=== PATIENT | male | born 1950 | race Caucasian/White ===

== ENCOUNTER 2017-03-02 15:10 | Outpatient (CLI) | payer MEDICARE ==
[~2017-03-02 15:10] MED LIST: Iopamidol 370 76% 100 ML VIAL ONE
--- NOTE | 2017-03-03 10:09 | CT ---
CONTRAST ENHANCED CTA IMAGES OF ABDOMEN AND PELVIS AND RUNOFF: DATE: 03/02/17. COMPARISON: Comparison is made to a previous exam from 06/29/13. FINDINGS: Contrast-enhanced CTA with 2D and 3D reconstructed images performed. The liver, spleen, pancreas, gallbladder, adrenal glands, and kidneys are grossly unremarkable. Ext ensive bilateral renal artery first order and second order arterial calcifications seen. Findings s uggest moderate to significant bilateral origin renal artery stenosis and just slightly distal to th e origin of the renal arteries. These appear to have been present on the previous exam and have not significantly changed. Some atherosclerotic changes without evidence of significant stenosis seen in the celiac and severe mesenteric arteries. The inferior mesenteric artery is also patent. Extensive atherosclerotic calc ifications are seen in the abdominal aorta without evidence of obvious aneurysms or dissections. Bilateral common iliac artery extensive atherosclerotic plaque is seen. RIGHT LOWER EXTREMITY: There is severe distal right common carotid artery plaque which results in high-grade and critical s tenosis of the right common iliac artery. Flow does appear to reach the right external iliac artery which is patent but also severely diseased. The right common femoral artery also contains extensiv e plaques. Atherosclerotic plaque is extensive in the proximal portion of the right superficial fem oral artery which is occluded. The right femoral profunda is patent. Flow is seen in the right fem oral profunda which provides collaterals which does reconstitute the distal right popliteal artery. Post-trifurcation flow is seen in the right anterior tibial, posterior tibial, and right peroneal a rteries. LEFT LOWER EXTREMITY: Atherosclerotic plaque is seen in the left common iliac artery. There is extensive distal left exte rnal iliac arterial plaque present which results in high-grade stenosis. There is an area of athere ctomy site in the left distal common femoral artery which does appear to be patent. There is flow s een in the left severely diseased left superficial femoral artery which has multisegmental areas of plaque stenosis. The left proximal and mid popliteal artery is patent. There is severe atheroscler otic plaque in the distal left popliteal artery. Flow is seen in the left anterior tibial, posterio r tibial, and left peroneal arteries post trifurcation. IMPRESSION: Extensive bilateral iliac and moderate to severe left superficial femoral artery and complete occlus ion of the right superficial femoral artery. POS: [facility]
== END 2017-03-02 15:11 | disposition home or self-care (01) ==
LOC: CT 15:10
PROVIDERS: ATTEND Thoracic Surgery (Cardiothoracic Vascular Surgery)
DX: I70.213 Atherosclerosis of native arteries of extremities with intermittent claudication, bilateral legs (principal); I77.1 Stricture of artery
CPT/HCPCS: 75635

== ENCOUNTER 2017-03-07 11:00 | Inpatient (IN) | payer MEDICARE ==
[2017-03-07] MEDS ORDERED: Iothalamate Meglumine 60% 50 ML VIAL FS ONE (11:48)
[2017-03-07] MEDS ORDERED: Heparin 5,000 UNITS/ML VIAL ONE (11:55)
[2017-03-07] MEDS ORDERED: Protamine Sulfate 50 MG/5 ML VIAL ONE (12:38)
[2017-03-07 12:52] LABS: Anion Gap 14 mmol/L (10-20); BUN (Urea Nitrogen) 11 mg/dL (8.4-25.7); Calc. Creatinine Clearance 119 mL/min (70-130); Calcium 10.1 mg/dL (7.8-10.44); Carbon Dioxide 24 mmol/L (23-31); Chloride 103 mmol/L (98-107); Estimated GFR-MDRD Greater than 90
[2017-03-07] MEDS ORDERED: Fentanyl 100 MCG/2 ML VIAL ONE ×4 (12:52→17:04)
[2017-03-07] MEDS ORDERED: Midazolam HCl 2 mg/2 ml Vial ONE (12:52)
[2017-03-07 12:58] LABS: Hematocrit 29.6 % (42.0-52.0); Mean Platelet Volume 7.3 fL (7.4-10.4); Red Blood Cell (RBC) Count 2.37 mill/uL (4.70-6.10); White Blood Cell (WBC) Count 12.5 thou/uL (4.8-10.8)
[2017-03-07 13:01] LABS: Band 24 % (5-11); Macrocytosis MODERATE=16-30 cells (100X) (0-5/hpf); Neutrophil 47 % (42-75); Polychromasia MODERATE = 3-4 cells (100X) (0-2/hpf); Promyelocytes 1 % (0-0); Target Cells MODERATE= 6-15 cells (100X) (0-1/hpf)
[2017-03-07] MEDS ORDERED: Propofol 200 MG/20 ML VIAL ONE (13:10)
[2017-03-07] MEDS ORDERED: Glycopyrrolate 0.2 MG/ML 5 ML SYRINGE ONE (13:10)
[2017-03-07] MEDS ORDERED: Ondansetron HCl/PF 4 MG/2 ML Vial ONE (13:10)
[2017-03-07 15:48] VITALS: BMI 24.8
[2017-03-07] MEDS ORDERED: Promethazine HCl 25 MG/ML VIAL SLOW IVP PRN (15:50)
[2017-03-07] MEDS ORDERED: Promethazine HCl 25 MG/ML VIAL IM PRN ×2 (15:50→17:15)
[2017-03-07] MEDS ORDERED: Ondansetron HCl/PF 4 MG/2 ML Vial IVP PRN (15:50)
[2017-03-07] MEDS ORDERED: HYDROcodone/Acetaminophen 5/325 mg Tablet PO PRN (17:15)
[2017-03-07] MEDS ORDERED: Fentanyl 100 MCG/2 ML VIAL SLOW IVP PRN ×2 (17:15)
[2017-03-07] MEDS ORDERED: Acetaminophen 325 MG TAB PO PRN (17:15)
--- NOTE | 2017-03-07 17:29 | OP ---
PREOPERATIVE DIAGNOSIS: Gangrene, right foot secondary to peripheral artery disease. PROCEDURES: Right common femoral endarterectomy with bovine patch angioplasty and right common and external iliac artery stenting. Stents sizes were 8 x 40 Innova self-expanding stent in the distal right common iliac extending into the proximal external iliac and a second more distal stent of an 8 x 37 Express LD stent extending from the distal aspect of the Innova stent and then crossing includ ing the previously placed Express stent. SURGEON: Tadeo Blair M.D. ANESTHESIA: General. ESTIMATED BLOOD LOSS: 200 mL. DESCRIPTION OF THE PROCEDURE: After adequate anesthesia had been obtained, the patient was prepped and draped. Right common femoral artery is exposed and then external iliac artery under the inguina l ligament. There was no pulse in the common femoral artery due to heavy calcification. Distal pro matthew branches x2 were mobilized and these were not very large branches. Following heparinization, a needle was inserted in the common femoral artery in one soft spot. Wire advanced and a 7 Chinese m arker sheath advanced and angiography retrograde was obtained. Following this, 8 x 40 Innova stent was deployed in the distal common iliac artery on the right and posted with an 8 balloon. There was still about 2.5 cm between that stent and previously placed external iliac artery Express stent. I t was elected to extend an Express stent 8 x 37 to cover the intervening area as well as within the prior stent. Following this, deployment of retrograde angiography showed good result. There was di sease in the more distal external iliac artery, but it did not appear to be significant. At that ti me wires and sheaths were removed. Clamps were applied. An arteriotomy performed through the commo n femoral extending onto the orifice of the superficial femoral. There was some backbleeding from t he superficial femoral artery, which had not been expected since it was occluded. Following endarte rectomy, a bovine patch was used to close this arteriotomy restoring flow after forward flushing and back flushing. Protamine was given to reverse the heparin and after obtaining good hemostasis, the wound was irrigated. There were good Doppler signals in both profunda femoral branches. The patie nt's wound was then closed in layers and the patient is to be taken to the recovery room.
[2017-03-07] MEDS: HYDROcodone/Acetaminophen 5/325 mg Tablet PO PRN (20:23)
[2017-03-07] MEDS: Simvastatin 40 MG TAB PO SCH (20:23)
[2017-03-07] MEDS: Sodium Chloride 0.9% 1,000 ML IV SCH (20:24)
[2017-03-07] MEDS: Metoprolol Tartrate 25 MG TAB PO SCH (20:36)
[2017-03-08] MEDS: HYDROcodone/Acetaminophen 5/325 mg Tablet PO PRN ×2 (00:33→10:05)
[2017-03-08 05:06] LABS: Anion Gap 10 mmol/L (10-20); BUN (Urea Nitrogen) 9 mg/dL (8.4-25.7); Calc. Creatinine Clearance 136 mL/min (70-130); Calcium 8.4 mg/dL (7.8-10.44); Carbon Dioxide 24 mmol/L (23-31); Chloride 106 mmol/L (98-107); Estimated GFR-MDRD Greater than 90
[2017-03-08 05:08] LABS: #Basophils 0.1 thou/uL (0.0-0.2); #Eosinphils 0.3 thou/uL (0.0-0.7); #Lymphocytes 2.1 thou/uL (1.20-3.40); #Monocytes 0.4 thou/uL (0.11-0.59); #Neutrophils 5.7 thou/uL (1.40-6.50); %Basophils 0.7 % (0.0-1.0); %Eosinophils 3.8 % (0.0-10.0); %Lymphocytes 24.7 % (21.0-51.0); %Monocytes 4.5 % (0.0-10.0); Hematocrit 21.3 % (42.0-52.0); Mean Platelet Volume 7.1 fL (7.4-10.4); Red Blood Cell (RBC) Count 1.69 mill/uL (4.70-6.10); White Blood Cell (WBC) Count 8.7 thou/uL (4.8-10.8)
[2017-03-08] MEDS: Ondansetron HCl/PF 4 MG/2 ML Vial IVP PRN ×2 (05:15→12:31)
[2017-03-08] MEDS ORDERED: Cyanocobalamin 1000 MCG/ML VIAL IM SCH (08:00)
[2017-03-08] MEDS: Clopidogrel Bisulfate 75 MG TAB PO SCH (10:01)
[2017-03-08] MEDS: Folic Acid/Vit B Comp W-C PO SCH (10:01)
[2017-03-08] MEDS: Lisinopril 10 MG TAB PO SCH (10:01)
[2017-03-08] MEDS: Metoprolol Tartrate 25 MG TAB PO SCH ×2 (10:01→21:32)
[2017-03-08] MEDS: Cyanocobalamin (Vitamin B-12) 1,000 MCG TAB PO SCH (10:01)
[2017-03-08] MEDS: Sodium Chloride 0.9% 1,000 ML IV SCH (16:47)
[2017-03-08] MEDS: Simvastatin 40 MG TAB PO SCH (21:32)
[2017-03-09] MEDS: Metoprolol Tartrate 25 MG TAB PO SCH (09:00)
[2017-03-09] MEDS: Lisinopril 10 MG TAB PO SCH (09:00)
[2017-03-09] MEDS: Cyanocobalamin (Vitamin B-12) 1,000 MCG TAB PO SCH (09:00)
[2017-03-09] MEDS: Clopidogrel Bisulfate 75 MG TAB PO SCH (09:00)
[2017-03-09] MEDS: Folic Acid/Vit B Comp W-C PO SCH (09:01)
[2017-03-09] MEDS: Sodium Chloride 0.9% 1,000 ML IV SCH (10:19)
[2017-03-09] MEDS: HYDROcodone/Acetaminophen 5/325 mg Tablet PO PRN (11:17)
[2017-03-09 12:35] VITALS: BP 105/44; TEMP 98.5
== END 2017-03-09 12:57 | disposition home or self-care (01) | DRG 272 ==
LOC: SURG A 11:00 → IMCU/EMU 16:34
PROVIDERS: ADMIT Thoracic Surgery (Cardiothoracic Vascular Surgery); ATTEND Thoracic Surgery (Cardiothoracic Vascular Surgery)
PROC: 04CK3ZZ Extirpation of Matter from Right Femoral Artery, Percutaneous Approach (ICD-10-PCS; principal; 2017-03-07)
PROC: 04UK3KZ Supplement Right Femoral Artery with Nonautologous Tissue Substitute, Percutaneous Approach (ICD-10-PCS; 2017-03-07)
PROC: 047C34Z Dilation of Right Common Iliac Artery with Drug-eluting Intraluminal Device, Percutaneous Approach (ICD-10-PCS; 2017-03-07)
PROC: 047H34Z Dilation of Right External Iliac Artery with Drug-eluting Intraluminal Device, Percutaneous Approach (ICD-10-PCS; 2017-03-07)
DX: I70.261 Atherosclerosis of native arteries of extremities with gangrene, right leg (principal); E78.2 Mixed hyperlipidemia; Z79.82 Long term (current) use of aspirin; Z87.891 Personal history of nicotine dependence
CPT/HCPCS: 36415; 76001; 80048; 82607; 85025; 86850; 86900; 86901; 93005; 93010; C1725; C1769; C1874; G8978-GP-CM; G8979-GP-CK; J1642; J1644; J2250; J2405; J2704; J2720; J3010; Q9961

== ENCOUNTER 2017-05-10 16:18 | Inpatient (IN) | payer MEDICARE ==
[2017-05-10] MEDS ORDERED: Acetaminophen 325 MG TAB PO PRN (16:32)
[2017-05-10] MEDS ORDERED: HYDROcodone/Acetaminophen 5/325 mg Tablet PO PRN (16:32)
[2017-05-10] MEDS ORDERED: Zolpidem Tartrate 5 MG TAB PO PRN (16:34)
[2017-05-10] MEDS ORDERED: Vancomycin HCl 1 GM in Premix Bag 1 BAG IVPB SCH (17:00)
[2017-05-10] MEDS: Fentanyl 100 MCG/2 ML VIAL SLOW IVP PRN (17:26)
[2017-05-10] MEDS ORDERED: hydrALAZINE 20 MG/ML VIAL SLOW IVP PRN (17:40)
[2017-05-10] MEDS: HYDROcodone/Acetaminophen 5/325 mg Tablet PO PRN ×2 (17:44→21:24)
[2017-05-10 17:45] LABS: #Basophils 0.1 thou/uL (0.0-0.2); #Eosinphils 0.4 thou/uL (0.0-0.7); #Monocytes 0.6 thou/uL (0.11-0.59); #Neutrophils 7.4 thou/uL (1.40-6.50); %Basophils 0.5 % (0.0-1.0); %Eosinophils 3.1 % (0.0-10.0); %Lymphocytes 26.3 % (21.0-51.0); %Monocytes 5.2 % (0.0-10.0); %Neutrophils 64.9 % (42.0-75.0); Hemoglobin 8.7 g/dL (14.0-18.0); Mean Corpuscular HGB CONC 32.9 g/dL (32.0-36.0); Mean Corpuscular Hemoglobin 38.2 pg (27.0-31.0); Mean Platelet Volume 8.3 fL (7.4-10.4); Platelet Count 346 thou/uL (130-400); RBC Distribution Width 23.2 % (11.5-14.5); Red Blood Cell (RBC) Count 2.27 mill/uL (4.70-6.10); White Blood Cell (WBC) Count 11.4 thou/uL (4.8-10.8)
--- NOTE | 2017-05-10 17:49 | PDOC.PN ---
- Subjective Encounter Start Date: 05/10/17 Encounter Start Time: 17:46 Pt seen for management of medical comorbidities, including hypertension. Denies chest pain, shortness of breath, fevers or chills. R foot pain+ - Objective MAR Reviewed: Yes Result Diagrams: 05/10/17 17:21 Phys Exam - Physical Examination Constitutional: NAD HEENT: moist MMs Neck: supple Respiratory: clear to auscultation bilateral Cardiovascular: RRR Gastrointestinal: soft Musculoskeletal: edema present R foot edema+ Neurological: moves all 4 limbs Psychiatric: normal affect Deviation from normal: Ulcer dorsum of R foot, swelling 3rd and 4th toes Dx/Plan (1) HTN (hypertension) Code(s): I10 - ESSENTIAL (PRIMARY) HYPERTENSION Status: Chronic (2) Dyslipidemia Code(s): E78.5 - HYPERLIPIDEMIA, UNSPECIFIED Status: Chronic (3) PVD (peripheral vascular disease) Code(s): I73.9 - PERIPHERAL VASCULAR DISEASE, UNSPECIFIED Status: Chronic - Plan plan discussed w/ family, continue antibiotics * . Monitor vital signs, titrate antihypertensives as needed. PRN IV hydralazine. Continue statin. Continue cefepime, vancomycin. Requesting pharmacy to dose vancomycin. Review of Systems - Review of Systems Respiratory: negative: Cough, Dry, Shortness of Breath, Hemoptysis, SOB with Excertion, Pleuritic Pain, Sputum, Wheezing Cardiovascular: negative: Chest Pain, Palpitations, Orthopnea, Paroxysmal Noc. Dyspnea, Edema, Light Headedness Musculoskeletal: Foot Pain - Medications/Allergies Allergies/Adverse Reactions: Allergies Allergy/AdvReac Type Severity Reaction Status Date / Time No Known Allergies Allergy Unverified 06/27/13 18:44 Medications: Current Medications Acetaminophen (Tylenol) 650 mg PO Q6H PRN PRN Reason: TEMP ELEVATION Hydrocodone Bitart/Acetaminophen ([place] 5/325) 1 tab PO Q4H PRN PRN Reason: PAIN SCALE 1-5 Hydrocodone Bitart/Acetaminophen ([place] 5/325) 2 tab PO Q4H PRN PRN Reason: PAIN SCALE 6-10 Last Admin: 05/10/17 17:44 Dose: 2 tab Aspirin (Aspirin Chewable) 81 mg PO DAILY [facility] Clopidogrel Bisulfate (Plavix) 75 mg PO DAILY [facility] Fentanyl (Sublimaze) 50 mcg SLOW IVP Q2H PRN PRN Reason: .SEVERE PAIN Last Admin: 12/13/17 17:26 Dose: 50 mcg Hydralazine HCl (Apresoline) 10 mg SLOW IVP Q6H PRN PRN Reason: SBP Greater Than 170 Vancomycin HCl 1 gm/ Device 200 mls @ 200 mls/hr IVPB 0500,1700 [facility] Last Admin: 05/10/17 17:30 Dose: 200 mls Cefepime HCl 2 gm/ Syringe 2.5 (ml/ Sterile Water) 12.5 mls @ 150 mls/hr SLOW IVP 0200,1000,1800 [facility] Ketorolac Tromethamine (Toradol) 30 mg IVP Q8HR [facility] Stop: 05/12/17 14:01 Metoprolol Tartrate (Lopressor) 25 mg PO BID [facility] Miscellaneous Medication (Pharmacy To Dose) 1 each IVPB ONE PRN PRN Reason: Pharmacy to dose Polyethylene Glycol (Miralax) 17 gm PO DAILY [facility] Simvastatin (Zocor) 40 mg PO HS [facility] Zolpidem Tartrate (Ambien) 5 mg PO HSPRN PRN PRN Reason: .INSOMNIA
[2017-05-10 17:54] LABS: Anion Gap 13 mmol/L (10-20); BUN (Urea Nitrogen) 17 mg/dL (8.4-25.7); Calc. Creatinine Clearance 0 mL/min (70-130); Calcium 10.1 mg/dL (7.8-10.44); Carbon Dioxide 23 mmol/L (23-31); Chloride 104 mmol/L (98-107); Estimated GFR-MDRD Greater than 90; Glucose 98 mg/dL (80-115); Potassium 3.9 mmol/L (3.5-5.1); Sodium 136 mmol/L (136-145)
[2017-05-10 18:24] VITALS: BMI 25.1
[2017-05-10] MEDS: Cefepime 2 GM, Syringe 2.5 ML in Sterile Water 10 ML SLOW IVP SCH (19:05)
--- NOTE | 2017-05-10 19:22 | RAD ---
AP VIEW CHEST 05/10/17 HISTORY: Postop wound infection. AP view chest is obtained. Comparison study is not available. AP view chest demonstrates cardiomegaly. The lungs are well aerated. No evidence of active intrathora cic disease seen. No evidence of effusions, pneumonia or pneumothorax seen. IMPRESSION: Cardiomegaly, otherwise unremarkable AP view chest. POS: [facility]
[2017-05-10 19:51] LABS: Anisocytosis MODERATE=16-30 cells (100X) (0-5/hpf); Basophilic Stippling SLIGHT = 1-2 cells (100X) (None Seen); Elliptocytes SLIGHT = 2-5 cells (100X) (0-1/hpf); MDiff Complete? YES; Macrocytosis SLIGHT = 6-15 cells (100X) (0-5/hpf); Ovalocytes SLIGHT = 2-5 cells (100X) (0-1/hpf); PLT Morphology Comment Appears Adequate; Poikilocytosis SLIGHT = 6-15 cells (100X) (0-5/hpf); Polychromasia MODERATE = 3-4 cells (100X) (0-2/hpf); Schistocytes SLIGHT = 2-5 cells (100X) (0-1/hpf); Target Cells MODERATE= 6-15 cells (100X) (0-1/hpf)
[2017-05-10] MEDS ORDERED: Simvastatin 40 MG TAB PO SCH (21:00)
[2017-05-10] MEDS: Metoprolol Tartrate 25 MG TAB PO SCH (21:18)
[2017-05-10] MEDS: Ketorolac Tromethamine 30 MG/ML VIAL IVP SCH (21:19)
[2017-05-11] MEDS: Cefepime 2 GM, Syringe 2.5 ML in Sterile Water 10 ML SLOW IVP SCH ×3 (02:57→16:46)
[2017-05-11] MEDS ORDERED: Ondansetron ODT 4 MG TAB PO PRN (03:01)
[2017-05-11] MEDS: Ondansetron HCl/PF 4 MG/2 ML Vial IVP PRN ×2 (03:16→09:30)
[2017-05-11] MEDS ORDERED: Vancomycin HCl 1 GM in Premix Bag 1 BAG IVPB SCH (05:00)
[2017-05-11] MEDS: Ketorolac Tromethamine 30 MG/ML VIAL IVP SCH ×3 (05:45→21:01)
[2017-05-11] MEDS: Vancomycin HCl 1.25 GM in Sodium Chloride 0.9% 250 ML 250 ML IVPB SCH ×2 (05:45→16:47)
[2017-05-11] MEDS ORDERED: Clopidogrel Bisulfate 75 MG TAB PO SCH (09:00)
[2017-05-11] MEDS: Fentanyl 100 MCG/2 ML VIAL SLOW IVP PRN (09:30)
[2017-05-11] MEDS: Metoprolol Tartrate 25 MG TAB PO SCH ×2 (09:31→20:02)
[2017-05-11] MEDS: Simvastatin 40 MG TAB PO SCH (09:31)
[2017-05-11] MEDS: Polyethylene Glycol 3350 17 GM Packet PO SCH (09:32)
[2017-05-11] MEDS ORDERED: Promethazine HCl 25 MG/ML VIAL IM/IV PRN (10:27)
--- NOTE | 2017-05-11 10:30 | PDOC.PN ---
- Subjective Encounter Start Date: 05/11/17 Encounter Start Time: 07:40 Pt seen for followup re: nausea. Reports severe nausea. [place] cold during the night. No fevers. R foot pain better. - Objective MAR Reviewed: Yes Vital Signs & Weight: Vital Signs (12 hours) Temp Pulse Resp BP BP Pulse Ox 05/11/17 09:22 97.9 F 77 18 117/71 97 05/11/17 03:29 98.6 F 74 20 138/70 99 05/11/17 00:00 97.6 F 70 16 103/59 L 100 Weight Weight 170 lb I&O: 05/10/17 05/11/17 05/12/17 06:59 06:59 06:59 Intake Total 310 Output Total 600 Balance -290 Result Diagrams: 05/10/17 17:21 05/10/17 17:21 Phys Exam - Physical Examination Constitutional: NAD HEENT: moist MMs Neck: supple Respiratory: clear to auscultation bilateral Cardiovascular: RRR Gastrointestinal: soft Neurological: moves all 4 limbs Psychiatric: normal affect Deviation from normal: Ulcer dorsum of R foot Dx/Plan (1) Nausea Code(s): R11.0 - NAUSEA Status: Acute (2) HTN (hypertension) Code(s): I10 - ESSENTIAL (PRIMARY) HYPERTENSION Status: Chronic (3) Dyslipidemia Code(s): E78.5 - HYPERLIPIDEMIA, UNSPECIFIED Status: Chronic (4) PVD (peripheral vascular disease) Code(s): I73.9 - PERIPHERAL VASCULAR DISEASE, UNSPECIFIED Status: Chronic - Plan continue antibiotics, out of bed/ambulate * . Continue PRN Zofran, add PRN Phenergan. Monitor vital signs, titrate antihypertensives as needed. Continue statin. Review of Systems - Review of Systems Constitutional: Chills Cardiovascular: negative: Chest Pain, Palpitations, Orthopnea, Paroxysmal Noc. Dyspnea, Edema, Light Headedness Gastrointestinal: Nausea. negative: Vomiting, Abdominal Pain, Diarrhea, Constipation, Melena, Hematochezia - Medications/Allergies Allergies/Adverse Reactions: Allergies Allergy/AdvReac Type Severity Reaction Status Date / Time No Known Allergies Allergy Verified 05/10/17 18:32 Medications: Current Medications Acetaminophen (Tylenol) 650 mg PO Q6H PRN PRN Reason: TEMP ELEVATION Hydrocodone Bitart/Acetaminophen ([place] 5/325) 1 tab PO Q4H PRN PRN Reason: PAIN SCALE 1-5 Hydrocodone Bitart/Acetaminophen ([place] 5/325) 2 tab PO Q4H PRN PRN Reason: PAIN SCALE 6-10 Last Admin: 05/10/17 21:24 Dose: 2 tab Aspirin (Aspirin Chewable) 81 mg PO DAILY [facility] Last Admin: 05/11/17 09:31 Dose: 81 mg Clopidogrel Bisulfate (Plavix) 75 mg PO DAILY [facility] Last Admin: 05/11/17 09:31 Dose: 75 mg Fentanyl (Sublimaze) 50 mcg SLOW IVP Q2H PRN PRN Reason: .SEVERE PAIN Last Admin: 05/11/17 09:30 Dose: 50 mcg Hydralazine HCl (Apresoline) 10 mg SLOW IVP Q6H PRN PRN Reason: SBP Greater Than 170 Cefepime HCl 2 gm/ Syringe 2.5 (ml/ Sterile Water) 12.5 mls @ 150 mls/hr SLOW IVP 0200,1000,1800 [facility] Last Admin: 05/11/17 09:40 Dose: 12.5 mls Vancomycin HCl 1.25 gm/ Sodium (Chloride) 250 mls @ 166.667 mls/hr IVPB 0600, 1800 [facility] Last Admin: 05/11/17 05:45 Dose: 250 mls Ketorolac Tromethamine (Toradol) 30 mg IVP Q8HR [facility] Stop: 05/12/17 14:01 Last Admin: 05/11/17 05:45 Dose: 30 mg Metoprolol Tartrate (Lopressor) 25 mg PO BID [facility] Last Admin: 05/11/17 09:31 Dose: 25 mg Miscellaneous Medication (Pharmacy To Dose) 1 each IVPB PRN PRN PRN Reason: Pharmacy to dose Ondansetron HCl (Zofran) 4 mg IVP Q6H PRN PRN Reason: Nausea/Vomiting Last Admin: 05/11/17 09:30 Dose: 4 mg Ondansetron HCl (Zofran Odt) 4 mg PO Q6H PRN PRN Reason: Nausea/Vomiting Polyethylene Glycol (Miralax) 17 gm PO DAILY [facility] Last Admin: 05/11/17 09:32 Dose: 17 gm Promethazine HCl (Phenergan) 25 mg IM/IV Q6H PRN PRN Reason: Nausea/Vomiting Simvastatin (Zocor) 40 mg PO DAILY [facility] Last Admin: 05/11/17 09:31 Dose: 40 mg Zolpidem Tartrate (Ambien) 5 mg PO HSPRN PRN PRN Reason: .INSOMNIA
[2017-05-11] MEDS: HYDROcodone/Acetaminophen 5/325 mg Tablet PO PRN ×2 (12:48→19:56)
[2017-05-11] MEDS: Lactated Ringer's 1,000 ML IV SCH (16:46)
[2017-05-12] MEDS: Cefepime 2 GM, Syringe 2.5 ML in Sterile Water 10 ML SLOW IVP SCH ×3 (02:48→18:08)
[2017-05-12 05:30] LABS: Vancomycin, Trough 14.4 ug/mL
[2017-05-12] MEDS: Vancomycin HCl 1.25 GM in Sodium Chloride 0.9% 250 ML 250 ML IVPB SCH ×2 (05:49→18:08)
[2017-05-12] MEDS: Ketorolac Tromethamine 30 MG/ML VIAL IVP SCH ×2 (05:50→15:22)
[2017-05-12] MEDS: HYDROcodone/Acetaminophen 5/325 mg Tablet PO PRN ×2 (05:57→20:43)
[2017-05-12] MEDS: Metoprolol Tartrate 25 MG TAB PO SCH ×2 (08:53→20:43)
--- NOTE | 2017-05-12 09:40 | PDOC.PN ---
- Subjective Encounter Start Date: 05/12/17 Encounter Start Time: 09:00 Pt seen for followup re: hypertension. Denies chest pain or shortness of breath. R foot pain+ - Objective MAR Reviewed: Yes Vital Signs & Weight: Vital Signs (12 hours) Temp Pulse Resp BP Pulse Ox 05/12/17 07:56 97.8 F 74 16 112/63 100 05/12/17 03:45 97.8 F 80 18 147/72 H 97 05/11/17 23:55 98.0 F 77 18 132/55 L 98 Weight Admit Weight 170 lb Weight 170 lb I&O: 05/11/17 05/12/17 05/13/17 06:59 06:59 06:59 Intake Total 310 1690 Output Total 600 725 Balance -290 965 Result Diagrams: 05/10/17 17:21 05/10/17 17:21 Phys Exam - Physical Examination Constitutional: NAD HEENT: moist MMs Neck: supple Respiratory: clear to auscultation bilateral Cardiovascular: RRR Neurological: moves all 4 limbs Psychiatric: normal affect Deviation from normal: Ulcer dorsum R foot Dx/Plan (1) HTN (hypertension) Code(s): I10 - ESSENTIAL (PRIMARY) HYPERTENSION Status: Chronic (2) Dyslipidemia Code(s): E78.5 - HYPERLIPIDEMIA, UNSPECIFIED Status: Chronic (3) PVD (peripheral vascular disease) Code(s): I73.9 - PERIPHERAL VASCULAR DISEASE, UNSPECIFIED Status: Chronic (4) Nausea Code(s): R11.0 - NAUSEA Status: Resolved - Plan * . Monitor vital signs, titrate antihypertensives. Continue IV antibiotics. Continue statin. Review of Systems - Review of Systems Constitutional: negative: Fever, Chills, Sweats, Weakness, Malaise Musculoskeletal: Foot Pain - Medications/Allergies Allergies/Adverse Reactions: Allergies Allergy/AdvReac Type Severity Reaction Status Date / Time No Known Allergies Allergy Verified 05/10/17 18:32 Medications: Current Medications Acetaminophen (Tylenol) 650 mg PO Q6H PRN PRN Reason: TEMP ELEVATION Hydrocodone Bitart/Acetaminophen ([place] 5/325) 1 tab PO Q4H PRN PRN Reason: PAIN SCALE 1-5 Hydrocodone Bitart/Acetaminophen ([place] 5/325) 2 tab PO Q4H PRN PRN Reason: PAIN SCALE 6-10 Last Admin: 05/12/17 05:57 Dose: 2 tab Fentanyl (Sublimaze) 50 mcg SLOW IVP Q2H PRN PRN Reason: .SEVERE PAIN Last Admin: 05/11/17 09:30 Dose: 50 mcg Hydralazine HCl (Apresoline) 10 mg SLOW IVP Q6H PRN PRN Reason: SBP Greater Than 170 Cefepime HCl 2 gm/ Syringe 2.5 (ml/ Sterile Water) 12.5 mls @ 150 mls/hr SLOW IVP 0200,1000,1800 [facility] Last Admin: 05/12/17 02:48 Dose: 12.5 mls Vancomycin HCl 1.25 gm/ Sodium (Chloride) 250 mls @ 166.667 mls/hr IVPB 0600, 1800 [facility] Last Admin: 05/12/17 05:49 Dose: 250 mls Lactated Ringer's (Lactated Ringer's) 1,000 mls @ 50 mls/hr IV .Q20H [facility] Last Admin: 05/11/17 16:46 Dose: 1,000 mls Ketorolac Tromethamine (Toradol) 30 mg IVP Q8HR [facility] Stop: 05/12/17 14:01 Last Admin: 05/12/17 05:50 Dose: 30 mg Metoprolol Tartrate (Lopressor) 25 mg PO BID [facility] Last Admin: 05/12/17 08:53 Dose: 25 mg Miscellaneous Medication (Pharmacy To Dose) 1 each IVPB PRN PRN PRN Reason: Pharmacy to dose Ondansetron HCl (Zofran) 4 mg IVP Q6H PRN PRN Reason: Nausea/Vomiting Last Admin: 05/11/17 09:30 Dose: 4 mg Ondansetron HCl (Zofran Odt) 4 mg PO Q6H PRN PRN Reason: Nausea/Vomiting Polyethylene Glycol (Miralax) 17 gm PO DAILY [facility] Last Admin: 05/11/17 09:32 Dose: 17 gm Promethazine HCl (Phenergan) 25 mg IM/IV Q6H PRN PRN Reason: Nausea/Vomiting Last Admin: 05/11/17 12:50 Dose: 25 mg Simvastatin (Zocor) 40 mg PO DAILY [facility] Last Admin: 05/11/17 09:31 Dose: 40 mg Zolpidem Tartrate (Ambien) 5 mg PO HSPRN PRN PRN Reason: .INSOMNIA
[2017-05-12] MEDS ORDERED: Protamine Sulfate 50 MG/5 ML VIAL ONE ×2 (10:42→15:29)
[2017-05-12] MEDS ORDERED: Heparin 5,000 UNITS/ML VIAL ONE (10:42)
[2017-05-12] MEDS: Simvastatin 40 MG TAB PO SCH (10:46)
[2017-05-12] MEDS: Polyethylene Glycol 3350 17 GM Packet PO SCH (10:46)
[2017-05-12] MEDS ORDERED: Fentanyl 100 MCG/2 ML VIAL ONE ×4 (11:15→16:43)
[2017-05-12] MEDS ORDERED: Fentanyl 250 MCG/5 ML VIAL ONE (11:30)
[2017-05-12 14:57] LABS: Actual Bicarbonate (HCO3a) 24.7 mEq/L (22-26); Base Excess (BEa) -0.4 mEq/L (0 (+/-) 2.5); CO2 Tension 42.9 mmHg (35.0-45.0); Calcium, Ionized 1.3 mmol/L (1.12-1.30); Hematocrit-ABG 22.5 % (42.0-52.0); Hemoglobin (Hb) 6.9 g/dL (14.0-18.0); O2 Tension (PaO2) 260.5 mmHg (80.0-100.0); pH, Arterial 7.38 (7.35-7.45)
[2017-05-12] MEDS: Lactated Ringer's 1,000 ML IV SCH (15:22)
[2017-05-12] MEDS ORDERED: Glycopyrrolate 0.2 MG/ML 5 ML SYRINGE ONE (15:29)
[2017-05-12] MEDS ORDERED: Heparin 10,000 UNITS/ 10 ML VIAL ONE (15:29)
[2017-05-12] MEDS ORDERED: ePHEDrine/0.9% NaCl/PF SYRINGE 50 mg/10 ml ONE (15:29)
[2017-05-12] MEDS ORDERED: Ondansetron HCl/PF 4 MG/2 ML Vial ONE (15:29)
[2017-05-12] MEDS ORDERED: Propofol 200 MG/20 ML VIAL ONE (15:29)
[2017-05-12] MEDS ORDERED: Lidocaine 1% PF 5 ML VIAL ONE (15:29)
[2017-05-12] MEDS ORDERED: Ondansetron HCl/PF 4 MG/2 ML Vial IVP PRN ×2 (15:49→17:07)
[2017-05-12] MEDS ORDERED: Promethazine HCl 25 MG/ML VIAL SLOW IVP PRN ×2 (15:49→17:07)
[2017-05-12] MEDS ORDERED: Morphine Sulfate 2 MG/ML SYRINGE SLOW IVP PRN (15:49)
[2017-05-12] MEDS ORDERED: Promethazine HCl 25 MG/ML VIAL IM PRN (15:49)
--- NOTE | 2017-05-12 16:09 | OP ---
PREOPERATIVE DIAGNOSIS: Ischemic gangrene, right foot with wrist pain. PROCEDURE: Right femoral to posterior tibial bypass with nonreversed insitu saphenous vein. SURGEON: Tadeo Blair M.D. ANESTHESIA: General. ESTIMATED BLOOD LOSS: 300 mL. DESCRIPTION OF PROCEDURE: After adequate anesthesia had been obtained, the saphenous vein was harves jayne with endovascular technique as it had been marked with ultrasound prior to prepping and draping. Following this, the right groin was dissected out identifying the previously endarterectomized and p atched common femoral artery. Branch vessels were not identified. Following this, posterior distal popliteal, tibioperoneal, posterior tibial artery were mobilized in the lower leg. The vein was then treated with ligating branches and then using the valvulotome. After heparinization, the femoral ar joni was clamped, and a small section of patch was excised and the saphenous vein anastomosed here. Following this, this was brought through its tunnel and then anastomosed to the posterior tibial jay ry with 7-0 Prolene suture. Good Doppler signals were present distally and after reversing the hepar in with protamine, the wounds were all thoroughly irrigated and inspected for bleeding and closed in layers. The patient received 1 unit of blood for a preoperative hemoglobin of 8.7 and intraoperative hemoglobin of 6.9. He is to be taken to the recovery room in guarded condition.
[2017-05-12 16:23] LABS: Analyzer IN Cardio OR; Puncture Site ALINE
[2017-05-12] MEDS ORDERED: Acetaminophen 325 MG TAB PO PRN (17:07)
[2017-05-12] MEDS ORDERED: HYDROcodone/Acetaminophen 5/325 mg Tablet PO PRN (17:07)
[2017-05-12] MEDS: Fentanyl 100 MCG/2 ML VIAL SLOW IVP PRN (18:07)
[2017-05-13] MEDS: Cefepime 2 GM, Syringe 2.5 ML in Sterile Water 10 ML SLOW IVP SCH ×3 (01:29→17:21)
[2017-05-13] MEDS: HYDROcodone/Acetaminophen 5/325 mg Tablet PO PRN ×6 (01:29→23:10)
[2017-05-13 05:34] LABS: #Eosinphils 0.4 thou/uL (0.0-0.7); #Lymphocytes 2.4 thou/uL (1.20-3.40); #Monocytes 0.6 thou/uL (0.11-0.59); #Neutrophils 7.2 thou/uL (1.40-6.50); %Basophils 0.4 % (0.0-1.0); %Eosinophils 3.6 % (0.0-10.0); %Lymphocytes 22.3 % (21.0-51.0); %Monocytes 5.9 % (0.0-10.0); %Neutrophils 67.8 % (42.0-75.0); Mean Corpuscular HGB CONC 33.6 g/dL (32.0-36.0); Mean Corpuscular Hemoglobin 36.9 pg (27.0-31.0); Platelet Count 228 thou/uL (130-400); RBC Distribution Width 22.8 % (11.5-14.5); Red Blood Cell (RBC) Count 2.17 mill/uL (4.70-6.10); White Blood Cell (WBC) Count 10.6 thou/uL (4.8-10.8)
[2017-05-13 05:58] LABS: Anion Gap 7 mmol/L (10-20); BUN (Urea Nitrogen) 13 mg/dL (8.4-25.7); Calc. Creatinine Clearance 119 mL/min (70-130); Calcium 8.7 mg/dL (7.8-10.44); Carbon Dioxide 28 mmol/L (23-31); Chloride 106 mmol/L (98-107); Estimated GFR-MDRD Greater than 90; Glucose 116 mg/dL (80-115); Potassium 3.8 mmol/L (3.5-5.1); Sodium 137 mmol/L (136-145)
[2017-05-13] MEDS: Vancomycin HCl 1.25 GM in Sodium Chloride 0.9% 250 ML 250 ML IVPB SCH ×2 (06:41→17:21)
[2017-05-13] MEDS: Lactated Ringer's 1,000 ML IV SCH (06:41)
[2017-05-13] MEDS: Simvastatin 40 MG TAB PO SCH (08:16)
[2017-05-13] MEDS: Metoprolol Tartrate 25 MG TAB PO SCH ×3 (08:16→20:04)
[2017-05-13] MEDS: Polyethylene Glycol 3350 17 GM Packet PO SCH (08:17)
[2017-05-13] MEDS: Fentanyl 100 MCG/2 ML VIAL SLOW IVP PRN ×4 (10:11→20:04)
--- NOTE | 2017-05-13 12:04 | PDOC.PN ---
- Subjective Encounter Start Date: 05/13/17 Encounter Start Time: 08:00 Pt seen for followup re: hypertension. Reports foot pain is better. Had surgery yesterday. - Objective Vital Signs & Weight: Vital Signs (12 hours) Temp Pulse Resp BP Pulse Ox 05/13/17 11:20 98.6 F 88 14 130/63 98 05/13/17 08:15 98.6 F 85 16 96 05/13/17 07:05 98.6 F 85 16 113/58 L 96 05/13/17 03:26 98 05/13/17 03:00 98.6 F 87 18 123/61 98 Weight Admit Weight 170 lb Weight 170 lb I&O: 05/12/17 05/13/17 05/14/17 06:59 06:59 06:59 Intake Total 1690 1750 Output Total 725 1800 1800 Balance 965 -1800 -50 Result Diagrams: 05/13/17 05:12 05/13/17 05:12 Additional Labs: Accuchecks 05/12/17 05/12/17 14:51 12:58 POC Glucose 116 H 118 H Phys Exam - Physical Examination Constitutional: NAD HEENT: moist MMs Neck: supple Respiratory: clear to auscultation bilateral Cardiovascular: RRR Neurological: moves all 4 limbs Psychiatric: normal affect Deviation from normal: Dorsal R foot ulcer Dx/Plan (1) HTN (hypertension) Code(s): I10 - ESSENTIAL (PRIMARY) HYPERTENSION Status: Chronic (2) Dyslipidemia Code(s): E78.5 - HYPERLIPIDEMIA, UNSPECIFIED Status: Chronic (3) PVD (peripheral vascular disease) Code(s): I73.9 - PERIPHERAL VASCULAR DISEASE, UNSPECIFIED Status: Chronic (4) Nausea Code(s): R11.0 - NAUSEA Status: Resolved - Plan continue antibiotics, PT/OT * . s/p femoral-posterior tibial bypass. BP controlled. Monitor vital signs, titrate antihypertensives as needed. Today AM BP low, metoprolol was held. Continue statin. Review of Systems - Review of Systems Cardiovascular: negative: Chest Pain, Palpitations, Orthopnea, Paroxysmal Noc. Dyspnea, Edema, Light Headedness Gastrointestinal: negative: Nausea, Vomiting, Abdominal Pain, Diarrhea, Constipation, Melena, Hematochezia - Medications/Allergies Allergies/Adverse Reactions: Allergies Allergy/AdvReac Type Severity Reaction Status Date / Time No Known Allergies Allergy Verified 05/10/17 18:32 Medications: Current Medications Acetaminophen (Tylenol) 650 mg PO Q4H PRN PRN Reason: Fever > 101.5,[place], or mild pain Hydrocodone Bitart/Acetaminophen ([place] 5/325) 1 tab PO Q4H PRN PRN Reason: Mild Pain (1-3) Hydrocodone Bitart/Acetaminophen ([place] 5/325) 2 tab PO Q4H PRN PRN Reason: Moderate Pain (4-6) Last Admin: 05/13/17 08:22 Dose: 2 tab Aspirin (Aspirin Chewable) 81 mg PO QAM [facility] Last Admin: 05/13/17 08:16 Dose: 81 mg Fentanyl (Sublimaze) 50 mcg SLOW IVP Q2H PRN PRN Reason: .SEVERE PAIN Last Admin: 05/13/17 11:53 Dose: 50 mcg Hydralazine HCl (Apresoline) 10 mg SLOW IVP Q6H PRN PRN Reason: SBP Greater Than 170 Cefepime HCl 2 gm/ Syringe 2.5 (ml/ Sterile Water) 12.5 mls @ 150 mls/hr SLOW IVP 0200,1000,1800 [facility] Last Admin: 05/13/17 10:06 Dose: 12.5 mls Vancomycin HCl 1.25 gm/ Sodium (Chloride) 250 mls @ 166.667 mls/hr IVPB 0600, 1800 [facility] Last Admin: 05/13/17 06:41 Dose: 250 mls Lactated Ringer's (Lactated Ringer's) 1,000 mls @ 50 mls/hr IV .Q20H [facility] Last Admin: 05/13/17 06:41 Dose: 1,000 mls Metoprolol Tartrate (Lopressor) 25 mg PO BID [facility] Last Admin: 05/13/17 08:23 Dose: Not Given Miscellaneous Medication (Pharmacy To Dose) 1 each IVPB PRN PRN PRN Reason: Pharmacy to dose Ondansetron HCl (Zofran) 4 mg IVP Q6H PRN PRN Reason: Nausea/Vomiting Polyethylene Glycol (Miralax) 17 gm PO DAILY [facility] Last Admin: 05/13/17 08:17 Dose: Not Given Promethazine HCl (Phenergan) 25 mg IM/IV Q6H PRN PRN Reason: Nausea/Vomiting Last Admin: 05/11/17 12:50 Dose: 25 mg Promethazine HCl (Phenergan) 6.25 mg SLOW IVP Q4H PRN PRN Reason: Nausea/Vomiting Simvastatin (Zocor) 40 mg PO DAILY [facility] Last Admin: 05/13/17 08:16 Dose: 40 mg Zolpidem Tartrate (Ambien) 5 mg PO HSPRN PRN PRN Reason: .INSOMNIA
[2017-05-14] MEDS: Cefepime 2 GM, Syringe 2.5 ML in Sterile Water 10 ML SLOW IVP SCH ×3 (01:29→17:01)
[2017-05-14] MEDS: HYDROcodone/Acetaminophen 5/325 mg Tablet PO PRN ×5 (03:21→23:58)
[2017-05-14] MEDS: Lactated Ringer's 1,000 ML IV SCH ×2 (03:38→15:09)
[2017-05-14 05:27] LABS: Vancomycin, Trough 15.2 ug/mL
[2017-05-14] MEDS: Vancomycin HCl 1.25 GM in Sodium Chloride 0.9% 250 ML 250 ML IVPB SCH ×2 (05:47→17:02)
[2017-05-14] MEDS: Fentanyl 100 MCG/2 ML VIAL SLOW IVP PRN ×2 (07:12→11:07)
[2017-05-14] MEDS: Metoprolol Tartrate 25 MG TAB PO SCH ×2 (09:15→20:21)
[2017-05-14] MEDS: Simvastatin 40 MG TAB PO SCH (09:15)
[2017-05-14] MEDS: Polyethylene Glycol 3350 17 GM Packet PO SCH (09:15)
--- NOTE | 2017-05-14 13:22 | PDOC.PN ---
- Subjective Encounter Start Date: 05/14/17 Encounter Start Time: 08:20 Pt seen for followup re: hypertension. No complaints today. - Objective Vital Signs & Weight: Vital Signs (12 hours) Temp Pulse Resp BP Pulse Ox 05/14/17 12:00 98.5 F 77 16 123/67 95 05/14/17 08:00 98.4 F 95 16 129/62 94 L 05/14/17 07:00 97.9 F 79 14 05/14/17 04:22 95 05/14/17 03:21 98.4 F 84 20 121/68 95 Weight Admit Weight 170 lb Weight 170 lb I&O: 05/13/17 05/14/17 05/15/17 06:59 06:59 06:59 Intake Total 4550 Output Total 1800 2675 Balance -1800 1875 Result Diagrams: 05/13/17 05:12 05/13/17 05:12 Phys Exam - Physical Examination Constitutional: NAD HEENT: moist MMs Neck: supple Respiratory: clear to auscultation bilateral Cardiovascular: RRR Gastrointestinal: positive bowel sounds Neurological: moves all 4 limbs Psychiatric: normal affect Dx/Plan (1) HTN (hypertension) Code(s): I10 - ESSENTIAL (PRIMARY) HYPERTENSION Status: Chronic (2) Dyslipidemia Code(s): E78.5 - HYPERLIPIDEMIA, UNSPECIFIED Status: Chronic (3) PVD (peripheral vascular disease) Code(s): I73.9 - PERIPHERAL VASCULAR DISEASE, UNSPECIFIED Status: Chronic (4) Nausea Code(s): R11.0 - NAUSEA Status: Resolved - Plan * . Continue statin, monitor vital signs. titrate antihypertensives as needed (HTN currently controlled). Review of Systems - Review of Systems Cardiovascular: negative: Chest Pain, Palpitations, Orthopnea, Paroxysmal Noc. Dyspnea, Edema, Light Headedness - Medications/Allergies Allergies/Adverse Reactions: Allergies Allergy/AdvReac Type Severity Reaction Status Date / Time No Known Allergies Allergy Verified 05/10/17 18:32 Medications: Current Medications Acetaminophen (Tylenol) 650 mg PO Q4H PRN PRN Reason: Fever > 101.5,CAGLE, or mild pain Hydrocodone Bitart/Acetaminophen ([place] 5/325) 1 tab PO Q4H PRN PRN Reason: Mild Pain (1-3) Hydrocodone Bitart/Acetaminophen ([place] 5/325) 2 tab PO Q4H PRN PRN Reason: Moderate Pain (4-6) Last Admin: 05/14/17 09:19 Dose: 2 tab Aspirin (Aspirin Chewable) 81 mg PO QAM [facility] Last Admin: 05/14/17 09:19 Dose: 81 mg Fentanyl (Sublimaze) 50 mcg SLOW IVP Q2H PRN PRN Reason: .SEVERE PAIN Last Admin: 05/14/17 11:07 Dose: 50 mcg Hydralazine HCl (Apresoline) 10 mg SLOW IVP Q6H PRN PRN Reason: SBP Greater Than 170 Cefepime HCl 2 gm/ Syringe 2.5 (ml/ Sterile Water) 12.5 mls @ 150 mls/hr SLOW IVP 0200,1000,1800 [facility] Last Admin: 05/14/17 09:34 Dose: 12.5 mls Vancomycin HCl 1.25 gm/ Sodium (Chloride) 250 mls @ 166.667 mls/hr IVPB 0600, 1800 [facility] Last Admin: 05/14/17 05:47 Dose: 250 mls Lactated Ringer's (Lactated Ringer's) 1,000 mls @ 50 mls/hr IV .Q20H [facility] Last Admin: 05/14/17 03:38 Dose: Not Given Metoprolol Tartrate (Lopressor) 25 mg PO BID [facility] Last Admin: 05/14/17 09:15 Dose: 25 mg Miscellaneous Medication (Pharmacy To Dose) 1 each IVPB PRN PRN PRN Reason: Pharmacy to dose Ondansetron HCl (Zofran) 4 mg IVP Q6H PRN PRN Reason: Nausea/Vomiting Polyethylene Glycol (Miralax) 17 gm PO DAILY [facility] Last Admin: 05/14/17 09:15 Dose: Not Given Promethazine HCl (Phenergan) 25 mg IM/IV Q6H PRN PRN Reason: Nausea/Vomiting Last Admin: 05/11/17 12:50 Dose: 25 mg Promethazine HCl (Phenergan) 6.25 mg SLOW IVP Q4H PRN PRN Reason: Nausea/Vomiting Simvastatin (Zocor) 40 mg PO DAILY [facility] Last Admin: 05/14/17 09:15 Dose: 40 mg Zolpidem Tartrate (Ambien) 5 mg PO HSPRN PRN PRN Reason: .INSOMNIA
[2017-05-15] MEDS: Cefepime 2 GM, Syringe 2.5 ML in Sterile Water 10 ML SLOW IVP SCH ×3 (02:21→18:13)
[2017-05-15] MEDS: HYDROcodone/Acetaminophen 5/325 mg Tablet PO PRN ×4 (05:14→20:12)
[2017-05-15] MEDS: Vancomycin HCl 1.25 GM in Sodium Chloride 0.9% 250 ML 250 ML IVPB SCH ×2 (05:15→18:13)
[2017-05-15] MEDS: Polyethylene Glycol 3350 17 GM Packet PO SCH (09:19)
[2017-05-15] MEDS: Simvastatin 40 MG TAB PO SCH (09:20)
[2017-05-15] MEDS: Metoprolol Tartrate 25 MG TAB PO SCH ×2 (09:20→22:58)
[2017-05-15] MEDS ORDERED: Calcium Carbonate 500 MG ChewTAB PO PRN (13:13)
--- NOTE | 2017-05-15 14:20 | PDOC.PN ---
- Subjective Encounter Start Date: 05/15/17 Encounter Start Time: 07:40 Pt seen for followup re: hypertension. Denies chest pain, shortness of breath or fevers. - Objective MAR Reviewed: Yes Vital Signs & Weight: Vital Signs (12 hours) Temp Pulse Resp BP Pulse Ox 05/15/17 11:30 98.5 F 73 20 131/70 95 05/15/17 08:00 98.4 F 84 20 142/63 H 94 L 05/15/17 04:00 98.2 F 81 16 123/65 95 Weight Admit Weight 170 lb Weight 170 lb I&O: 05/14/17 05/15/17 05/16/17 06:59 06:59 06:59 Intake Total 4550 3615 Output Total 1365 3700 Balance 1875 -85 Result Diagrams: 05/13/17 05:12 05/13/17 05:12 Phys Exam - Physical Examination Constitutional: NAD HEENT: moist MMs Neck: supple Respiratory: clear to auscultation bilateral Cardiovascular: RRR Gastrointestinal: soft Neurological: moves all 4 limbs Psychiatric: normal affect Dx/Plan (1) HTN (hypertension) Code(s): I10 - ESSENTIAL (PRIMARY) HYPERTENSION Status: Chronic (2) Dyslipidemia Code(s): E78.5 - HYPERLIPIDEMIA, UNSPECIFIED Status: Chronic (3) PVD (peripheral vascular disease) Code(s): I73.9 - PERIPHERAL VASCULAR DISEASE, UNSPECIFIED Status: Chronic (4) Nausea Code(s): R11.0 - NAUSEA Status: Resolved - Plan * . Continue to monitor vital signs., HTN controlled. Continue statin. Continue IV antibiotics. Review of Systems - Review of Systems Respiratory: negative: Cough, Dry, Shortness of Breath, Hemoptysis, SOB with Excertion, Pleuritic Pain, Sputum, Wheezing Cardiovascular: negative: Chest Pain, Palpitations, Orthopnea, Paroxysmal Noc. Dyspnea, Edema, Light Headedness - Medications/Allergies Allergies/Adverse Reactions: Allergies Allergy/AdvReac Type Severity Reaction Status Date / Time No Known Allergies Allergy Verified 05/10/17 18:32 Medications: Current Medications Acetaminophen (Tylenol) 650 mg PO Q4H PRN PRN Reason: Fever > 101.5,CAGLE, or mild pain Hydrocodone Bitart/Acetaminophen ([place] 5/325) 1 tab PO Q4H PRN PRN Reason: Mild Pain (1-3) Hydrocodone Bitart/Acetaminophen ([place] 5/325) 2 tab PO Q4H PRN PRN Reason: Moderate Pain (4-6) Last Admin: 05/15/17 14:10 Dose: 2 tab Aspirin (Aspirin Chewable) 81 mg PO QAM [facility] Last Admin: 05/15/17 09:20 Dose: 81 mg Calcium Carbonate (Tums) 1,000 mg PO Q6H PRN PRN Reason: INDIGESTION Last Admin: 05/15/17 13:21 Dose: 1,000 mg Fentanyl (Sublimaze) 50 mcg SLOW IVP Q2H PRN PRN Reason: .SEVERE PAIN Last Admin: 05/14/17 11:07 Dose: 50 mcg Hydralazine HCl (Apresoline) 10 mg SLOW IVP Q6H PRN PRN Reason: SBP Greater Than 170 Cefepime HCl 2 gm/ Syringe 2.5 (ml/ Sterile Water) 12.5 mls @ 150 mls/hr SLOW IVP 0200,1000,1800 [facility] Last Admin: 05/15/17 09:23 Dose: 12.5 mls Vancomycin HCl 1.25 gm/ Sodium (Chloride) 250 mls @ 166.667 mls/hr IVPB 0600, 1800 [facility] Last Admin: 05/15/17 05:15 Dose: 250 mls Metoprolol Tartrate (Lopressor) 25 mg PO BID [facility] Last Admin: 05/15/17 09:20 Dose: 25 mg Miscellaneous Medication (Pharmacy To Dose) 1 each IVPB PRN PRN PRN Reason: Pharmacy to dose Ondansetron HCl (Zofran) 4 mg IVP Q6H PRN PRN Reason: Nausea/Vomiting Polyethylene Glycol (Miralax) 17 gm PO DAILY [facility] Last Admin: 05/15/17 09:19 Dose: 17 gm Promethazine HCl (Phenergan) 25 mg IM/IV Q6H PRN PRN Reason: Nausea/Vomiting Last Admin: 05/11/17 12:50 Dose: 25 mg Promethazine HCl (Phenergan) 6.25 mg SLOW IVP Q4H PRN PRN Reason: Nausea/Vomiting Simvastatin (Zocor) 40 mg PO DAILY [facility] Last Admin: 05/15/17 09:20 Dose: 40 mg Zolpidem Tartrate (Ambien) 5 mg PO HSPRN PRN PRN Reason: .INSOMNIA
[2017-05-16] MEDS: Cefepime 2 GM, Syringe 2.5 ML in Sterile Water 10 ML SLOW IVP SCH ×3 (01:05→17:51)
[2017-05-16] MEDS: HYDROcodone/Acetaminophen 5/325 mg Tablet PO PRN ×4 (02:54→20:10)
[2017-05-16] MEDS: Fentanyl 100 MCG/2 ML VIAL SLOW IVP PRN (05:32)
[2017-05-16 05:50] LABS: Vancomycin, Trough 15.8 ug/mL
[2017-05-16] MEDS: Vancomycin HCl 1.25 GM in Sodium Chloride 0.9% 250 ML 250 ML IVPB SCH ×2 (06:18→17:51)
[2017-05-16] MEDS: Metoprolol Tartrate 25 MG TAB PO SCH ×2 (08:42→20:08)
[2017-05-16] MEDS: Polyethylene Glycol 3350 17 GM Packet PO SCH (08:42)
[2017-05-16] MEDS: Simvastatin 40 MG TAB PO SCH (08:42)
--- NOTE | 2017-05-16 12:26 | PDOC.PN ---
- Subjective Encounter Start Date: 05/16/17 Encounter Start Time: 07:20 Pt seen for followup re: hypertension. Denies chest pain, shortness of breath , fevers or chills. - Objective MAR Reviewed: Yes Vital Signs & Weight: Vital Signs (12 hours) Temp Pulse Resp BP Pulse Ox 05/16/17 08:00 98.4 F 88 16 109/57 L 97 05/16/17 04:00 98.4 F 80 16 136/77 96 Weight Admit Weight 170 lb Weight 170 lb I&O: 05/15/17 05/16/17 05/17/17 06:59 06:59 06:59 Intake Total 3615 640 Output Total 3700 950 Balance -85 -310 Result Diagrams: 05/13/17 05:12 05/13/17 05:12 Phys Exam - Physical Examination Constitutional: NAD HEENT: moist MMs, oral pharynx no lesions Neck: supple Respiratory: clear to auscultation bilateral Cardiovascular: RRR Gastrointestinal: soft Neurological: moves all 4 limbs Deviation from normal: R dorsal foot ulcer Dx/Plan (1) HTN (hypertension) Code(s): I10 - ESSENTIAL (PRIMARY) HYPERTENSION Status: Chronic (2) Dyslipidemia Code(s): E78.5 - HYPERLIPIDEMIA, UNSPECIFIED Status: Chronic (3) PVD (peripheral vascular disease) Code(s): I73.9 - PERIPHERAL VASCULAR DISEASE, UNSPECIFIED Status: Chronic (4) Nausea Code(s): R11.0 - NAUSEA Status: Resolved - Plan continue antibiotics, PT/OT * . HTN controlled. Pt improving, will sign off. Pls call back if needed. Review of Systems - Review of Systems Respiratory: negative: Cough, Dry, Shortness of Breath, Hemoptysis, SOB with Excertion, Pleuritic Pain, Sputum, Wheezing Cardiovascular: negative: Chest Pain, Palpitations, Orthopnea, Paroxysmal Noc. Dyspnea, Edema, Light Headedness - Medications/Allergies Allergies/Adverse Reactions: Allergies Allergy/AdvReac Type Severity Reaction Status Date / Time No Known Allergies Allergy Verified 05/10/17 18:32 Medications: Current Medications Acetaminophen (Tylenol) 650 mg PO Q4H PRN PRN Reason: Fever > 101.5,CAGLE, or mild pain Hydrocodone Bitart/Acetaminophen ([place] 5/325) 1 tab PO Q4H PRN PRN Reason: Mild Pain (1-3) Hydrocodone Bitart/Acetaminophen ([place] 5/325) 2 tab PO Q4H PRN PRN Reason: Moderate Pain (4-6) Last Admin: 05/16/17 08:44 Dose: 2 tab Aspirin (Aspirin Chewable) 81 mg PO QAM [facility] Last Admin: 05/16/17 08:42 Dose: 81 mg Calcium Carbonate (Tums) 1,000 mg PO Q6H PRN PRN Reason: INDIGESTION Last Admin: 05/15/17 13:21 Dose: 1,000 mg Fentanyl (Sublimaze) 50 mcg SLOW IVP Q2H PRN PRN Reason: .SEVERE PAIN Last Admin: 05/16/17 05:32 Dose: 50 mcg Hydralazine HCl (Apresoline) 10 mg SLOW IVP Q6H PRN PRN Reason: SBP Greater Than 170 Cefepime HCl 2 gm/ Syringe 2.5 (ml/ Sterile Water) 12.5 mls @ 150 mls/hr SLOW IVP 0200,1000,1800 [facility] Last Admin: 05/16/17 08:42 Dose: 12.5 mls Vancomycin HCl 1.25 gm/ Sodium (Chloride) 250 mls @ 166.667 mls/hr IVPB 0600, 1800 [facility] Last Admin: 05/16/17 06:18 Dose: 250 mls Metoprolol Tartrate (Lopressor) 25 mg PO BID [facility] Last Admin: 05/16/17 08:42 Dose: 25 mg Miscellaneous Medication (Pharmacy To Dose) 1 each IVPB PRN PRN PRN Reason: Pharmacy to dose Ondansetron HCl (Zofran) 4 mg IVP Q6H PRN PRN Reason: Nausea/Vomiting Polyethylene Glycol (Miralax) 17 gm PO DAILY [facility] Last Admin: 05/16/17 08:42 Dose: 17 gm Promethazine HCl (Phenergan) 25 mg IM/IV Q6H PRN PRN Reason: Nausea/Vomiting Last Admin: 05/11/17 12:50 Dose: 25 mg Promethazine HCl (Phenergan) 6.25 mg SLOW IVP Q4H PRN PRN Reason: Nausea/Vomiting Simvastatin (Zocor) 40 mg PO DAILY [facility] Last Admin: 05/16/17 08:42 Dose: 40 mg Zolpidem Tartrate (Ambien) 5 mg PO HSPRN PRN PRN Reason: .INSOMNIA
[2017-05-16 13:26] LABS: Actual Bicarbonate (HCO3a) 23.6 mEq/L (22-26); CO2 Tension 38.1 mmHg (35.0-45.0); Calcium, Ionized 1.3 mmol/L (1.12-1.30); Hematocrit-ABG 23.5 % (42.0-52.0); Hemoglobin (Hb) 7.4 g/dL (14.0-18.0); O2 Tension (PaO2) 253.2 mmHg (80.0-100.0); pH, Arterial 7.41 (7.35-7.45)
[2017-05-16 14:08] LABS: Analyzer IN Cardio OR; Puncture Site ALINE
[2017-05-17] MEDS: Cefepime 2 GM, Syringe 2.5 ML in Sterile Water 10 ML SLOW IVP SCH (01:29)
[2017-05-17] MEDS: HYDROcodone/Acetaminophen 5/325 mg Tablet PO PRN ×4 (01:32→20:16)
[2017-05-17] MEDS: Vancomycin HCl 1.25 GM in Sodium Chloride 0.9% 250 ML 250 ML IVPB SCH (05:52)
[2017-05-17] MEDS: Fentanyl 100 MCG/2 ML VIAL SLOW IVP PRN ×2 (08:17→11:01)
[2017-05-17] MEDS: Polyethylene Glycol 3350 17 GM Packet PO SCH (08:21)
[2017-05-17] MEDS: Simvastatin 40 MG TAB PO SCH (08:21)
[2017-05-17] MEDS: Cipro 250 MG TAB PO SCH ×2 (08:21→19:53)
[2017-05-17] MEDS: Metoprolol Tartrate 25 MG TAB PO SCH ×2 (08:21→19:59)
[2017-05-18] MEDS: Cipro 250 MG TAB PO SCH ×2 (06:01→20:25)
[2017-05-18] MEDS: Polyethylene Glycol 3350 17 GM Packet PO SCH (08:22)
[2017-05-18] MEDS: HYDROcodone/Acetaminophen 5/325 mg Tablet PO PRN ×3 (08:22→20:35)
[2017-05-18] MEDS: Simvastatin 40 MG TAB PO SCH (08:22)
[2017-05-18] MEDS: Metoprolol Tartrate 25 MG TAB PO SCH ×2 (08:22→20:35)
[2017-05-18] MEDS: Fentanyl 100 MCG/2 ML VIAL SLOW IVP PRN (12:06)
[2017-05-19] MEDS: HYDROcodone/Acetaminophen 5/325 mg Tablet PO PRN ×5 (03:08→21:57)
[2017-05-19] MEDS: Cipro 250 MG TAB PO SCH ×2 (06:18→20:19)
[2017-05-19] MEDS ORDERED: Magnesium Citrate 300 ML BOT PO SCH (07:15)
[2017-05-19] MEDS ORDERED: Bisacodyl 5 MG TAB PO SCH (07:15)
[2017-05-19] MEDS: Simvastatin 40 MG TAB PO SCH (08:36)
[2017-05-19] MEDS: Polyethylene Glycol 3350 17 GM Packet PO SCH (08:37)
[2017-05-19] MEDS: Metoprolol Tartrate 25 MG TAB PO SCH ×2 (08:45→20:19)
[2017-05-20] MEDS: HYDROcodone/Acetaminophen 5/325 mg Tablet PO PRN ×3 (03:23→12:07)
[2017-05-20] MEDS: Cipro 250 MG TAB PO SCH (05:50)
[2017-05-20] MEDS: Metoprolol Tartrate 25 MG TAB PO SCH (09:47)
[2017-05-20] MEDS: Simvastatin 40 MG TAB PO SCH (09:47)
[2017-05-20] MEDS: Polyethylene Glycol 3350 17 GM Packet PO SCH (09:48)
[2017-05-20 12:03] VITALS: BP 125/63; TEMP 98.1
--- NOTE | 2017-05-24 14:03 | HP ---
HISTORY OF PRESENT ILLNESS: This is a 67-year-old gentleman who presented to the office on the day o f admission 05/10/2017, complaining of at least 1 week of severe pain in the right foot with a worsen ing wound such that he was unable to sleep at night and had foul smelling drainage. He was followed with a long history of vascular disease in his lower extremities. He has undergone most recently in February a right femoral endarterectomy with a common and external iliac artery stent. His wound init ially appeared to be improving; however, has recently become much worse. MEDICATIONS: Include lisinopril 10 mg a day, Plavix 75 mg a day, metoprolol 25 mg b.i.d., aspirin 81 mg a day and simvastatin 40 mg a day. PAST MEDICAL HISTORY: Includes dyslipidemia. He has also taken diabetic medications in the past, bu t I am not sure if he currently was on these as well. PAST SURGICAL HISTORY: Includes left common femoral endarterectomy in 2007, debridement of a gangren ous foot in 2007, debridement of his left foot in 2013, angiogram of left common iliac and right exte rnal iliac artery stents and then a right femoral endarterectomy with common and external iliac arter y stents in 2016. PHYSICAL EXAMINATION: GENERAL: Ill-appearing male, pale. CARDIAC: Regular rate and rhythm with aortic stenosis, murmur. LUNGS: Clear to auscultation bilaterally. ABDOMEN: Soft, nontender and nondistended. EXTREMITIES: Severe edema of both legs with drainage from a large dorsal wound on the right foot wit h light exudate. He has palpable femoral pulses bilaterally with very weak Doppler signals in his ri ght foot. PLAN: Plan at this time is for admission to the hospital, IV antibiotics and possible attempted salv age with a right femoral posterior tibial bypass. The patient understands and is agreeable to tonja sánchez
--- NOTE | 2017-05-24 14:04 | DIS ---
HOSPITAL COURSE: The patient was admitted with severe ischemic rest pain. He progressing of a wound on his foot over the previous week or two, and on 05/12/2017, he was taken to the operating room whe re he underwent a right femoral-tibial bypass. Postoperatively, his pain was much improved, and he h ad slow and steady improvement in the wound on his leg and foot. He had good Doppler signals in his tibial vessel distally and a good Doppler signal in his graft. He was maintained on IV antibiotics f or several days and then discharged on 05/19/2017 to continue his medications and oral antibiotics at home. His dressings are to be changed every third day by Wound Care at the hospital. Discharge and followup instructions were given. DISCHARGE MEDICATIONS: Cipro 250 b.i.d., hydrocodone for pain, simvastatin 40 at bedtime, aspirin 1 a day, metoprolol 25 b.i.d., lisinopril 10 daily, and Plavix 75 daily.
--- NOTE | 2017-05-27 13:25 | EKG ---
Test Reason : Blood Pressure : / mmHG Vent. 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
--- NOTE | 2017-06-16 09:38 | PQF ---
INES RODRIGUEZ JAMES M MD [id number] SURG A- [id number] CLINICAL DOCUMENTATION CLARIFICATION FORM: POST DISCHARGE DATE: 06/16/17 ATTN: Dr. Blair Please exercise your independent, professional judgment in responding to the clarification form. Clinical indicators are provided on the bottom of this form for your review Please check appropriate box(s): [ ] Cellulitis Site (please specify): Laterality [ ] Left [ ] Right [ ] Bilateral Add acute to the list and give options for choice of acute, subacute, chronic since it make a difference in the code assigned [ ] Due to Venous Stasis ulcer with PVD [ ] Wound Infection [ ] Unable to determine In addition, please specify: Present on Admission (POA): [ ] Yes [ ] No [ ] Unable to determine For continuity of documentation, please document condition throughout progress notes and discharge summary. Thank You. CLINICAL INDICATORS - SIGNS / SYMPTOMS / LABS Purulent Drainage severe edema of both legs with drainage from a large dorsal wound on the right foot with light exudate RISKS: Peripheral Vascular Disease TREATMENT: IV Antibiotics Wound care nurse Right femoral to posterior tibial bypass (This form is maintained as a part of the permanent medical record) 2014 H2020, [employer]. All Rights Reserved Annabella [email or web address] [phone] [email or web address]
== END 2017-05-20 12:59 | disposition home health service (06) | DRG 254 ==
LOC: SURG A 16:18
PROVIDERS: ADMIT Thoracic Surgery (Cardiothoracic Vascular Surgery); ATTEND Thoracic Surgery (Cardiothoracic Vascular Surgery)
PROC: 041K09N Bypass Right Femoral Artery to Posterior Tibial Artery with Autologous Venous Tissue, Open Approach (ICD-10-PCS; principal; 2017-05-12)
PROC: 06BP0ZZ Excision of Right Saphenous Vein, Open Approach (ICD-10-PCS; 2017-05-12)
PROC: 30233N1 Transfusion of Nonautologous Red Blood Cells into Peripheral Vein, Percutaneous Approach (ICD-10-PCS; 2017-05-12)
DX: I70.261 Atherosclerosis of native arteries of extremities with gangrene, right leg (principal); E78.5 Hyperlipidemia, unspecified; I10 Essential (primary) hypertension; R11.0 Nausea; Z79.01 Long term (current) use of anticoagulants; Z79.82 Long term (current) use of aspirin; Z95.820 Peripheral vascular angioplasty status with implants and grafts
CPT/HCPCS: 36415; 36416; 36430; 71010; 80048; 80202; 82805; 85025; 86850; 86900; 86901; 93005; 93010; 93306; A4216; G8978-GP-CL; G8979-GP-CJ; J0692; J1642; J1644; J1885; J2001; J2405; J2550; J2704; J2720; J3010; J3370; J7050; P9016

== ENCOUNTER 2018-05-07 06:05 | Day surgery (SDC) | payer MEDICARE ==
[2018-05-04 10:48] VITALS: BMI 26.6
[2018-05-07 06:53] LABS: Mean Corpuscular HGB CONC 31.9 g/dL (32.0-36.0); Mean Corpuscular Hemoglobin 36.8 pg (27.0-31.0); Mean Platelet Volume 8.4 fL (7.4-10.4); Platelet Count 285 thou/uL (130-400); Red Blood Cell (RBC) Count 2.73 mill/uL (4.70-6.10); White Blood Cell (WBC) Count 10.6 thou/uL (4.8-10.8)
[2018-05-07 07:00] LABS: Anion Gap 11 mmol/L (10-20); BUN (Urea Nitrogen) 21 mg/dL (8.4-25.7); Calc. Creatinine Clearance 103 mL/min (70-130); Calcium 10.1 mg/dL (7.8-10.44); Carbon Dioxide 25 mmol/L (23-31); Chloride 106 mmol/L (98-107); Estimated GFR-MDRD Greater than 90; Glucose 98 mg/dL (80-115); Potassium 4.1 mmol/L (3.5-5.1); Sodium 138 mmol/L (136-145)
[2018-05-07 07:01] LABS: #Basophils 0.1 thou/uL (0.0-0.2); #Eosinphils 0.5 thou/uL (0.0-0.7); #Lymphocytes 3.6 thou/uL (1.20-3.40); #Monocytes 0.6 thou/uL (0.11-0.59); #Neutrophils 5.9 thou/uL (1.40-6.50); %Basophils 0.7 % (0.0-1.0); %Eosinophils 4.3 % (0.0-10.0); %Lymphocytes 33.7 % (21.0-51.0); %Monocytes 6.1 % (0.0-10.0); %Neutrophils 55.3 % (42.0-75.0)
[2018-05-07] MEDS ORDERED: Fentanyl 100 MCG/2 ML VIAL ONE (07:19)
[2018-05-07] MEDS ORDERED: Midazolam HCl 2 mg/2 ml Vial ONE (07:19)
[2018-05-07 07:24] LABS: Band 22 % (5-11); Eosinophils 4 % (0-10); Hypochromia SLIGHT = 6-15 cells (100X) (0-5/hpf); Lymphocytes 45 % (21-51); MDiff Complete? YES; Macrocytosis MODERATE=16-30 cells (100X) (0-5/hpf); Monocytes 1 % (0-10); Neutrophil 28 % (42-75); Nucleated RBC 1 % (0); Polychromasia MODERATE = 3-4 cells (100X) (0-2/hpf); Target Cells SLIGHT = 2-5 cells (100X) (0-1/hpf)
[2018-05-07] MEDS ORDERED: Heparin 10,000 UNITS/1 ML VIAL ONE ×2 (07:43→08:33)
[2018-05-07] MEDS ORDERED: Protamine Sulfate 50 MG/5 ML VIAL ONE (08:54)
[2018-05-07] MEDS ORDERED: Iopamidol 370 76% 50 ML VIAL FS ONE (08:55)
--- NOTE | 2018-05-07 15:58 | OP ---
DATE OF PROCEDURE: 05/07/2018 PREOPERATIVE DIAGNOSES: Severe peripheral arterial disease, stenosis in distal right femoral-posterior tibial graft. POSTOPERATIVE DIAGNOSES: Severe peripheral arterial disease, stenosis in distal right femoral-posterior tibial graft. PROCEDURES PERFORMED: Abdominal aortogram, bilateral lower extremity runoff with stent placement in the right posterior tibial artery, distal fem-tib graft with a 2.5 x 32 mm Synergy stent and balloon angioplasty with the same 2.5 mm balloon of the proximal anastomosis. FLUORO: 16.2 minutes. CONTRAST: 44. ANESTHESIA: 1% lidocaine with IV sedation. DESCRIPTION OF PROCEDURE: After prepping and draping the right groin, ultrasound-guided puncture was carried out. On initial two punctures, I was unable to the negotiate wire up the iliac artery, actually much past the origin of the needle. Finally, I punctured a little more distally in the groin and a Glidewire was able to negotiate the area, and 5-Thai dilator and sheaths were placed. Retrograde angiography demonstrated two severe stenoses, one in the common femoral artery proximally and one in the distal external iliac artery. Following this, a Contra catheter was placed, and an angiogram was obtained. A combination of a glidewire and [place] catheter were used to negotiate the iliac bifurcation and inject contrast into the right lower extremity through the origin of the graft. Following this, a 5-Thai dilator and sheath, Destination were passed over a Magic Torque wire, which had been used to go through the existing Lancaster catheter. Following this, a Luge wire was used to negotiate the distal stenosis in the fem-tib graft and a 2 mm balloon was used to pre-dilate and then, the 2.5 x 32 stent placed with completion angiography showing a nice result. The balloon was then used to inflate the proximal graft at the junction of the common femoral artery without much if any change in the appearance of this stenosis. Following this, the runoff of the left leg was obtained. FINDINGS: Left common femoral, left external iliac artery stenosis patent, left external iliac and common iliac graft diffusely diseased with widely patent aorta, right common external iliac widely patent, as was the common femoral artery. The profunda femoral artery consistent with 2 large branches with at least 50% hazy stenosis. The graft had been previously noted 50% proximal stenosis and 90% distal stenosis with single vessel runoff via the posterior tibial. Left lower extremity had diffusely and severely diseased SFA, popliteal and tibioperoneal system. Job ID: [id number]
== END 2018-05-07 15:59 | disposition home or self-care (01) ==
LOC: CCL 06:05
PROVIDERS: ATTEND Thoracic Surgery (Cardiothoracic Vascular Surgery)
PROC: 047K34Z Dilation of Right Femoral Artery with Drug-eluting Intraluminal Device, Percutaneous Approach (ICD-10-PCS; principal; 2018-05-07)
DX: T82.858A Stenosis of other vascular prosthetic devices, implants and grafts, initial encounter (principal); I70.263 Atherosclerosis of native arteries of extremities with gangrene, bilateral legs; E78.2 Mixed hyperlipidemia; I65.8 Occlusion and stenosis of other precerebral arteries; I50.22 Chronic systolic (congestive) heart failure; I35.0 Nonrheumatic aortic (valve) stenosis; Z87.891 Personal history of nicotine dependence; Z79.82 Long term (current) use of aspirin; Z79.899 Other long term (current) drug therapy
CPT/HCPCS: 36415; 37220; 37230; 76942; 80048; 85025; 85347; C1725; C1769; C1874; J1644; J2250; J2720; J3010

== ENCOUNTER → 2020-06-29 | Day surgery (SDC) | payer MEDICARE ==
[~2020-06-29] MED LIST changes: +Calcium Chloride 1 GM/10 ML Abboject SYRINGE ONE; +Fentanyl 100 MCG/2 ML VIAL ONE; +Heparin 5,000 UNITS/ML VIAL ONE; -Iopamidol 370 76% 100 ML VIAL ONE; +Labetalol HCl 100 MG/20 ML VIAL ONE; +Midazolam HCl 2 mg/2 ml Vial ONE; +Morphine 2 MG/ML VIAL ONE; +Morphine 4 MG/ML VIAL ONE; +PROPOFOL 200 MG/20 ML VIAL ONE; +Protamine Sulfate 50 MG/5 ML VIAL ONE
--- NOTE | 2020-06-30 08:38 | OP ---
DATE OF PROCEDURE: 06/29/2020 PREOPERATIVE DIAGNOSES: Peripheral artery disease, gangrene, rest pain. PROCEDURE PERFORMED: Aortogram bilateral iliofemoral runoff, PORT SURVEYOR of the distal right femoral posterior tibial bypass with a 3 mm balloon, bovine pericardial patch angioplasty of the origin of the right femoral posterior tibial bypass, use of the endarterectomized superficial femoral artery to patch the orifice of a large deep profunda femoral branch. DESCRIPTION OF PROCEDURE: After adequate anesthesia had been obtained, the patient was prepped and draped. Right groin incision was made and dissection was carried out exposing the common femoral artery, the lateral circumflex femoral artery branch, profunda branch, both laterally and medially and then posteriorly. Vein bypass was exposed. Needle was then inserted into the common femoral artery after heparinization. Wire was inserted under fluoroscopy into the aorta and Contra catheter was then used to cannulate the left common iliac artery and angiography was obtained. There was about a 50% stenosis in the right external iliac artery. The left external iliac artery was subtotally occluded in two areas. Following this, a Bentson and an angled Glidewire were attempted to pass through the distal stenosis unsuccessfully. Using one of these wires, the angled glide catheter was advanced into the external iliac artery and angiography obtained and attempts to cross the stenosis with a 0.014 wire, both were unsuccessful. At that time, the wire and catheter were removed and clamps were applied to the vessels in the right groin. Superficial femoral artery was divided about 2.5 cm distally and this segment was then endarterectomized extending into the common and profunda femoral artery orifices. A section of this endarterectomized vein was then used as a patch to profundoplasty to the large posterior branch. Following this, a 5-Mohawk dilator and sheath were placed over a wire into the saphenous vein graft and runoff obtained showing subtotally occluded stent distally. A 2.5 mm balloon was then inflated and then a 3 mm balloon inflated twice with excellent runoff. Following this, a bovine pericardial patch was used as an onlay patch over the origin of the greater saphenous vein. Following this, the flow was restored and bleeding was controlled with sutures. Protamine was used to reverse the heparin and after assuring good hemostasis, the wound was irrigated and closed in layers. The patient is to be taken to the recovery room in guarded condition. Job ID: [id number]
--- NOTE | 2020-06-30 08:50 | PRG ---
DATE OF SERVICE: 06/30/2020 The patient was evaluated this morning one day postop. His hemoglobin was 9.5. His electrolytes were satisfactory. Vital signs were unremarkable except for resting tachycardia, which has been persistent. The patient complained of severe pain in his foot throughout the night and when I entered the room, he was once again dangling his foot off the bed and it was dripping clear liquid from the edema. His groin wound was looking fine with no swelling, however did have significant edema, which has been persistent in the right leg more than the left leg. He has no palpable pulse in the graft, but the Doppler was utilized, and he had good Doppler signal in his femoral-popliteal graft. At this time, I do not think there is anything further to be done with the blood supply to the right leg as far as improvement as he appears to have a patent femoral posterior tibial graft. I was anticipating that his rest pain would be relieved, but it has not been and I think at this time he probably will be facing an amputation of his leg at some point in the near future. Job ID: [id number]
[2020-06-30 14:53] LABS: Actual Bicarbonate (HCO3a) 24.6 mEq/L (22-28); Analyzer IN Cardio OR; Base Excess (BEa) -1.2 mEq/L (-2.0 to +3.0); CO2 Tension 45.7 mmHg (35.0-45.0); Calcium, Ionized (arterial) 1.25 mmol/L (1.12-1.30); Hemoglobin (Hb) 9.2 g/dL (14.0-18.0); O2 Tension (PaO2), arterial 124.1 mmHg (> 70.0); Potassium - ABG Lab 4.24 mmol/L (3.70-5.30); pH, Arterial 7.35 (7.35-7.45)
[2020-06-30 14:54] LABS: Actual Bicarbonate (HCO3a) 24.9 mEq/L (22-28); Analyzer IN Cardio OR; Base Excess (BEa) 0.2 mEq/L (-2.0 to +3.0); CO2 Tension 40.9 mmHg (35.0-45.0); Calcium, Ionized (arterial) 1.35 mmol/L (1.12-1.30); Carboxyhemoglobin (COHb) 1.3 gm% (0.0-3.0); Hemoglobin (Hb) 7.7 g/dL (14.0-18.0); Potassium - ABG Lab 3.54 mmol/L (3.70-5.30)
[2020-06-30 14:54] LABS: Actual Bicarbonate (HCO3a) 24.6 mEq/L (22-28); Analyzer IN Cardio OR; Base Excess (BEa) -1.3 mEq/L (-2.0 to +3.0); CO2 Tension 47.1 mmHg (35.0-45.0); Calcium, Ionized (arterial) 1.35 mmol/L (1.12-1.30); Carboxyhemoglobin (COHb) 1.1 gm% (0.0-3.0); Hemoglobin (Hb) 8.1 g/dL (14.0-18.0); O2 Tension (PaO2), arterial 128.5 mmHg (> 70.0); Potassium - ABG Lab 3.77 mmol/L (3.70-5.30); pH, Arterial 7.34 (7.35-7.45)
[2020-06-30 14:55] LABS: O2 Tension (PaO2), arterial 501.8 mmHg (> 70.0); Puncture Site Arterial Line
[2020-06-30 14:56] LABS: Puncture Site Arterial Line
[2020-06-30 14:56] LABS: Puncture Site Arterial Line
== END ==
LOC: SDC 06:22
PROVIDERS: ATTEND Thoracic Surgery (Cardiothoracic Vascular Surgery)
PROC: 047H3ZZ Dilation of Right External Iliac Artery, Percutaneous Approach (ICD-10-PCS; principal; 2020-06-29)
PROC: B40D1ZZ Plain Radiography of Aorta and Bilateral Lower Extremity Arteries using Low Osmolar Contrast (ICD-10-PCS; 2020-06-29)
DX: I73.9 Peripheral vascular disease, unspecified (principal); I88.9 Nonspecific lymphadenitis, unspecified; T82.858A Stenosis of other vascular prosthetic devices, implants and grafts, initial encounter; E11.9 Type 2 diabetes mellitus without complications; E78.5 Hyperlipidemia, unspecified; I50.9 Heart failure, unspecified; I35.0 Nonrheumatic aortic (valve) stenosis; D64.9 Anemia, unspecified; F17.200 Nicotine dependence, unspecified, uncomplicated; Z79.02 Long term (current) use of antithrombotics/antiplatelets; Z79.82 Long term (current) use of aspirin; Z79.899 Other long term (current) drug therapy; Z95.5 Presence of coronary angioplasty implant and graft
CPT/HCPCS: 36430; 76000; 82805; 86850; 86900; 86901; 88305; J1642; J1644; J2250; J2270; J2704; J2720; J3010; P9016